=== PATIENT | male | born 1985 | race African-American/Black ===

== ENCOUNTER 2024-10-06 12:19 | Emergency (ER) | payer SELFPAY ==
[2024-10-06 12:21] VITALS: BP 168/99
--- NOTE | 2024-10-06 13:55 | ED.MUSCINJ ---
HPI-Injury
General
Chief Complaint: Musculo-Skeletal Complaint
Source: patient
Exam Limitations: none
Time Seen by Provider: 10/06/24 13:45
Nursing documentation reviewed up to this point in time: agreed with
History of Present Illness-Injury
Is this injury a work related problem?: Yes
Is pt an associate of [facility]?: No
Initial Injury comments:
39-year-old male with history of torn right ACL presents for right knee pain after a work-related incident yesterday. He works at [employer] and he was opening a safe whose door was and as he pulled it quickly it opened and struck him in the
anterior aspect of his right knee just below the kneecap. He went to urgent care yesterday and had a negative x-ray and was told to come back for reevaluation on 10/12 and was given a soft Velcro knee brace to wear.
Patient is here now requesting something more than Tylenol or ibuprofen for pain.
Past History
Past History
ED Past Medical History: None
ED Past Surgical History: Orthopedic (Right ACL repair)
Social History
Tobacco: Non-smoker
Review of Systems
Review of Systems
Allergies reviewed?: Yes
All Other Systems: ROS reviewed and negative except as documented in HPI and ROS
Musculoskeletal: Reports other (Pain anterior aspect of right knee)
Skin: Reports no symptoms
Musculoskeletal Injury Exam
Musculoskeletal Injury Exam
Right Anterior Knee:
Pain with Movement?: Moderate
Tender to palpation?: Moderate
Soft tissue swelling?: Mild
External deformity and angulation?: None
Joint effusion?: None
Contusion?: Mild
Hematoma-local bleeding into tissue?: None
Strain- Sprain- Tear (Connective tissue injury)?: None
Crepitus with movement?: Yes
Joint instability?: Yes
Malalignment/deformity?: Yes
Range of motion: Limited
Distal skin color and temperature: normal-warm & good color
Normal distal neurovascular exam?: Yes
Phy Exam
Physical Exam
Physical Exam:
PHYSICAL EXAMINATION:
General: no apparent distress, not acutely ill
Neuro: alert and oriented.
Psychiatric: well kept. interactive and cooperative
Musculoskeletal: Moves with ease
Skin: Warm, pink.
MDM/Problems Addressed
MDM/Problems Addressed:
39-year-old male with history of torn right ACL presents for right knee pain after a work-related incident yesterday. He works at [employer] and he was opening a safe whose door was and as he pulled it quickly it opened and struck him in the
anterior aspect of his right knee just below the kneecap. He went to urgent care yesterday and had a negative x-ray and was told to come back for reevaluation on 10/12 and was given a soft Velcro knee brace to wear.
Patient is here now requesting something more than Tylenol or ibuprofen for pain.
I explained to patient that for this type of injury we do not give anything stronger for pain. I explained that it is only 1 day post trauma and it is not unusual for pain to an injured area to worsen over 2 or 3 days following trauma.
He asked if I could write him a prescription for the strongest amount of ibuprofen and Tylenol which I did.
There is no significant swelling about the knee, it is point tender anteriorly just below the patella, no bruising, distal neurovascular intact. His knee brace was replaced. No further intervention indicated at this time.
Pt ambulated out with minimal limp
*Critical Care Note
Total Time (30-74mins, 75-104mins- exclusive of procedures): Not Applicable
ED Attending Note
-
Portions of this chart may have been created with voice recognition software.� Occasional wrong word or��sound alike� substitutions may have occurred due to the inherent limitations of voice recognition software.
Discharge Plan
Departure
Patient Disposition: Home (Routine Discharge)
Date of Disposition: 10/06/24
Time of Disposition: 13:59
Patient with high blood pressure during this ER visit?: No
Condition: Good
Discharge Problem:
Contusion of right knee
Instructions: Contusion (DC), Using Cold for Pain
Prescriptions:
New
ibuprofen 600 mg tablet
600 mg PO TID PRN (Reason: Pain) Qty: 20 0RF
acetaminophen [Tylenol Extra Strength] 500 mg tablet
1,000 mg PO TIDPRN PRN (Reason: pain) Qty: 30 0RF
Referrals:
[facility] [Other] - Keep scheduled appt
UNKNOWN - PT DOES,NOT KNOW [Family Provider] -
Stand Alone Forms: Return to Work
Activity Restrictions/Additional Instructions:
As we discussed, ibuprofen 600 mg, with food, every 6 hours as needed for pain. If you need something in between every 6 hours use the Tylenol.
Keep your appointment with your [facility] facility [facility] on 10/12
You may return to work tomorrow, limit standing to 30 minutes at a time with 10-minute interval rest until further instructed by your Work[employer] provider
Wear the knee brace for support
Interventions
Interventions:
*Risk Screen - Suicide Last Done: 10/06/24 12:21
*General Assessment Last Done: 10/06/24 12:21
*Neglect/Abuse Screening Last Done: 10/06/24 12:21
*ED- Fall Risk Assessment Last Done: 10/06/24 13:51
*ED COVID-19 Vaccine History Last Done: 10/06/24 13:51
*Nursing Disposition Last Done: 10/06/24 14:25
ED-Musculoskeletal Assessment Last Done: 10/06/24 13:51
Discharge Date and Time
Discharge Date/Time: 10/06/24 14:27
Print Language: CITIZEN OF [place]
[2024-10-06 14:25] VITALS: BP 118/68
== END 2024-10-06 14:27 | disposition home or self-care (01) ==
LOC: EMR 12:19
PROVIDERS: EMERGENCY PHYSICIAN Emergency Medicine
DX: S80.01XA Contusion of right knee, initial encounter (principal); W22.8XXA Striking against or struck by other objects, initial encounter; Y99.0 Civilian activity done for income or pay
CPT/HCPCS: 99282